=== PATIENT | female | born 1990 | race Caucasian/White ===

== ENCOUNTER 2016-04-09 13:13 | Observation (INO) | payer BC ==
[2016-04-09 14:00] LABS: Urine Bilirubin Negative (NEGATIVE); Urine Blood Negative /ul (NEGATIVE); Urine Ketone Negative (NEGATIVE); Urine Nitrite Negative (NEGATIVE); Urine Protein Negative (NEGATIVE); Urine Specific Gravity >=1.030 SP.GR. (1.005-1.010); Urine Urobilinogen Normal (NORMAL)
[2016-04-09 14:11] LABS: Urine Color Yellow
[2016-04-09 14:12] LABS: Urine Appearance Clear; Urine Bacteria 1+; Urine RBC None Seen /hpf (0-5)
[2016-04-09 14:22] LABS: Cocaine Ur Negative (NEGATIVE); Urine Barbiturate Negative (NEGATIVE); Urine Benzodiazepines Negative (NEGATIVE); Urine Opiates Negative (NEGATIVE); Urine PCP Negative (NEGATIVE); Urine THC Negative (NEGATIVE)
[2016-04-09] MEDS ORDERED: DEXTROSE 5%-LACTATED RINGERS 1,000 ML IV PRN (14:29)
[2016-04-09] MEDS ORDERED: TERBUTALINE SULFATE 1 MG/ML VIAL ONE (15:17)
[2016-04-09] MEDS ORDERED: TERBUTALINE SULFATE 1 MG/ML VIAL SC ONE (15:29)
[2016-04-09] MEDS ORDERED: RINGERS SOLUTION,LACTATED 1,000 ML IV PRN (15:29)
[2016-04-09] MEDS ORDERED: PENICILLIN G POTASSIUM 5 MILLIONUNT in DEXTROSE 5 % IN WATER 100 ML IV ONE ×2 (16:00)
[2016-04-09] MEDS ORDERED: BETAMETH ACET/BETAMET SOD PHOS 6 MG/ML VIAL IM ONE (16:00)
[2016-04-09] MEDS: PENICILLIN G POTASSIUM 2.5 MILLIONUNT in DEXTROSE 5 % IN WATER 100 ML IV SCH ×2 (19:33)
[2016-04-10] MEDS: PENICILLIN G POTASSIUM 2.5 MILLIONUNT in DEXTROSE 5 % IN WATER 100 ML IV SCH ×2
--- NOTE | 2016-04-10 05:01 | DS ---
Description of Stay: This is a 25-year-old 1 para 0 at 33 6/7 weeks visiting from out of town who presented to labor and delivery complaining of contractions. Patient states the contractions started the night previous and continued throughout the night becoming more intense and frequent which brought her in to the hospital to be evaluated. She was noted to have contractions every 3 minutes. She denied leaking of fluid, vaginal bleeding, decreased movement, recent illness or injury, or recent sexual activity. Her has been relatively uncomplicated other than having had a couple serious back surgeries in which she is scheduled for a primary section at 39 weeks in her home town in [place]. Upon admission she was given a bolus of IV fluids and 1 dose of terbutaline 0.25 mg subcutaneous which failed to stop her contractions. She refused a trial of nifedipine. Because of the frequency and intensity of her contractions she was given 1 dose of betamethasone and started on IV penicillin for GBS prophylaxis after cultures were obtained. She was admitted for overnight observation during which her contractions decreased in frequency and intensity. Her cervix remained unchanged at 1/50/-2 with reactive nonstress test and reassuring tracing throughout her stay. Patient is discharged to drive back to her home in [place] where arrangements have been made with her TRANSFER TABLE OPERATOR HELPER there to receive her second dose of betamethasone around 1600 today. Because of the long drive, she will be heparin 5000 units subcutaneous 1 prior to discharge. Procedures Performed: see notes below - nonstress test, continuous /toco monitoring, tocolytic therapy, IV hydration Discharge Disposition: Home self care Disposition: Home self-care Condition: Stable Discharge Activity: Activity as tolerated, Other - no sexual activity or strenuous activity until evaluated by her TRANSFER TABLE OPERATOR HELPER Discharge Diet: General/regular food Referrals: Juan Schaeffer ARNP [Primary Care Provider] - Complete Home Medications List: Complete Home Medication List: Guaifenesin/Pseudoephedrne HCl [Mucinex D ER Tablet] 1 each PO PRN PRN 04/09/16
--- NOTE | 2016-04-10 05:14 | HP ---
Chief Complaint - Chief Complaint Date of Service: 04/09/16 Time of Service: 13:00 Chief Complaint: painful contractions History of Present Illness: This is a 25-year-old 1 para 0 at 33 6/7 weeks visiting from out of town who presented to labor and delivery complaining of contractions. Patient states the contractions started the night previous and continued throughout the night becoming more intense and frequent which brought her in to the hospital to be evaluated. She was noted to have contractions every 3 minutes. She denied leaking of fluid, vaginal bleeding, decreased movement, recent illness or injury, or recent sexual activity. Her has been relatively uncomplicated other than having had a couple serious back surgeries in which she is scheduled for a primary section at 39 weeks in her home town in [place]. - Patient's Past Medical History Patient History - Medical: Other - back problems Patient History - Cardiac/Respiratory: Other - minor URI which she is currently on Mucinex Patient History - Cancer: No Hx of Cancer Patient History - Surgical Procedures: Cholecystectomy - 2012, Orthopedic - 2 significant back surgeries with rods and fusion in 2012 and 2014, knee surgery 2009 Patient History - Other: None - Family History Family History:: no untoward family reactions to anesthesia, no familial bleeding tendencies, no family history of clotting disorders, no family history of premature - Social History Living Situations: spouse Abuse History: No History of abuse Psych History: No pertinent hx Does anyone smoke in the home?: No - Immunizations Immunizations Up to Date: Yes Hx Pneumococcal Vaccination: No History of Influenza Vaccine: Yes Review Of Systems (GEN) - Review of Systems EENTM: Present: Nose Congestion Respiratory: Present: No Symptoms Reported Cardiac: Present: No Symptoms Reported Abdominal: Present: Other - Contractions Genitourinary: Present: No Symptoms Reported Musculoskeletal: Present: No Symptoms Reported Neurological: Present: No Symptoms Reported Skin: Present: No Symptoms Reported Endocrine: Present: No Symptoms Reported Allergies/Adverse Reactions: Allergies Allergy/AdvReac Type Severity Reaction Status Date / Time No Known Allergies Allergy Unverified 04/09/16 13:39 Home Medications: HOME MEDICATIONS Guaifenesin/Pseudoephedrne HCl [Mucinex D ER Tablet] 1 each PO PRN PRN 04/09/16 [Last Taken 04/09/16] Exam - Exam Constitutional: Present: Alert, Oriented x3, Cooperative, No distress ENT Exam: Present: hearing grossly normal Back Exam: Present: no CVA tenderness Breasts: Present: Exam deferred Respiratory: Present: lungs clear, normal breath sounds, no respiratory distress Cardiovascular/Chest: Present: normal peripheral pulses, regular rate, rhythm, no edema, no murmur Peripheral Pulses: radial (R): 2+, radial (L): 2+ Abdomen: Present: soft, nontender, nondistended, no rebound tenderness, no hepatospenomegaly, other - Gravid uterus consistent with 33-35 week gestation age /Rectal: Present: Other - Cervix 50/-2 Extremity: Present: normal range of motion, non-tender, no pedal edema, no calf tenderness Skin Exam: Present: normal color, warm/dry, no cyanosis Neurologic: Present: normal mood/affect, oriented x 3 Appearance: Present: appropriate appearance, appropriate insight, denies illness Eye contact: Present: cooperative, good eye contact, normal speech Thoughts: Present: normal thought pattern Diagnostic Studies: Abnormal Lab Results 04/09/16 Range/Units 13:40 Ur Leukocyte Esterase 75 H (NEGATIVE) /ul Urine WBC 5-10 H (0-5) /hpf Ur Epithelial Cells 5-10 H (0-5) /hpf Urine Bacteria 1+ H (NONE) Laboratory Results Urine Color Yellow 04/09/16 13:40 Urine Appearance Clear 04/09/16 13:40 Urine pH 6.0 pH (5.0-7.0) 04/09/16 13:40 Ur Specific [place] >=1.030 SP.GR. (1.005-1.010) 04/09/16 13:40 Urine Protein Negative mg/dL (NEGATIVE) 04/09/16 13:40 Urine Glucose (UA) Negative mg/dL (NEGATIVE) 04/09/16 13:40 Urine Ketones Negative mg/dL (NEGATIVE) 04/09/16 13:40 Urine Blood Negative /ul (NEGATIVE) 04/09/16 13:40 Urine Nitrate Negative (NEGATIVE) 04/09/16 13:40 Urine Bilirubin Negative mg/dl (NEGATIVE) 04/09/16 13:40 Urine Urobilinogen Normal EU/dl (NORMAL) 04/09/16 13:40 Ur Leukocyte Esterase 75 /ul (NEGATIVE) H 04/09/16 13:40 Urine RBC None seen /hpf (0-5) 04/09/16 13:40 Urine WBC 5-10 /hpf (0-5) H 04/09/16 13:40 Ur Epithelial Cells 5-10 /hpf (0-5) H 04/09/16 13:40 Urine Bacteria 1+ (NONE) H 04/09/16 13:40 Urine Opiates Screen Negative (NEGATIVE) 04/09/16 13:40 Barbiturate Screen Negative (NEGATIVE) 04/09/16 13:40 Ur Phencyclidine Scrn Negative (NEGATIVE) 04/09/16 13:40 Urine Amphetamine Negative (NEGATIVE) 04/09/16 13:40 U Benzodiazepines Scrn Negative (NEGATIVE) 04/09/16 13:40 Urine Cocaine Screen Negative (NEGATIVE) 04/09/16 13:40 Urine Marijuana (THC) Negative (NEGATIVE) 04/09/16 13:40 Assessment/Plan - Procedures Results: Nonstress test reactive. [place] with persistent contractions every 3-4 minutes - Assessment/Plan (1) Threatened labor Assessment: Admit for 23 hour observation to assure no cervical change. Because frequency and intensity of contractions and patient's gestational age we'll proceed with aggressive therapy including IV penicillin for GBS prophylaxis, tocolytics, and betamethasone. If patient is determined to be in labor she will be transferred to a tertiary care center for further management. Obtain medical records from OB physician in [place]. Problem: Ruled-out Qualifiers: Trimester: third trimester Qualified Code(s): O47.03 - False labor before 37 completed weeks of gestation, third trimester
--- NOTE | 2016-04-10 05:36 | PN ---
Subjective - Date and Time Seen Date: 04/10/16 Time: 05:28 Subjective Narrative: Patient reports having a few contractions of increased intensity around 3 this morning but has since become mild and no different than the ones she has been having since yesterday. Objective - Review of Systems Generalized/Overall Review: Reports: No Symptoms Reported EENTM: Reports: No Symptoms Reported Respiratory: Reports: No Symptoms Reported Cardiac: Reports: No Symptoms Reported Abdominal: Reports: No Symptoms Reported, Other - mild contractions Genitourinary Symptoms: Reports: No Symptoms Reported Musculoskeletal Complaints: Reports: No Symptoms Reported Neurological: Reports: No Symptoms Reported Skin: Reports: No Symptoms Reported Endocrine: Reports: No Symptoms Reported - Vitals Vitals: BP 121/68, P 68, T 36.7C, R 16, O2 94% - Abnormal Lab Findings Abnormal Lab Findings: Abnormal Lab Results 04/09/16 Range/Units 13:40 Ur Leukocyte Esterase 75 H (NEGATIVE) /ul Urine WBC 5-10 H (0-5) /hpf Ur Epithelial Cells 5-10 H (0-5) /hpf Urine Bacteria 1+ H (NONE) - Exam Exam Narrative: NST reactive. [place]- contractions q 3-4 min Constitutional: Present: Alert, Oriented x3, Cooperative, No distress Breasts: Present: Exam deferred Respiratory: Present: no respiratory distress Cardiovascular/Chest: Present: normal peripheral pulses, regular rate, rhythm, no edema Abdomen: Present: soft, nontender, nondistended, no rebound tenderness, other - Gravid consistent with 34 wk GA /Rectal: Present: Other - Cvx - 1/50/-2 Extremity: Present: normal range of motion, non-tender, normal inspection, no pedal edema, no calf tenderness Skin Exam: Present: normal color, warm/dry Neurologic: Present: normal mood/affect, oriented x 3 Appearance: Present: appropriate appearance, appropriate insight Eye contact: Present: cooperative, good eye contact, normal speech Thoughts: Present: normal thought pattern, normal mood /affect Assessment/Plan - Problems/Diagnosis (1) Threatened labor Problem: Ruled-out Qualifiers: Trimester: third trimester Qualified Code(s): O47.03 - False labor before 37 completed weeks of gestation, third trimester Narrative: Patient will be discharged this am to return to her home in [place] where arrangements have been made with her DIAL PRINTER there to receive her 2nd dose of betamethasone around 1600 today. PTL precautions.
[2016-04-10] MEDS ORDERED: HEPARIN SODIUM,PORCINE 5,000 UNITS/ML VIAL SC ONE (06:30)
[2016-04-10] MEDS ORDERED: BETAMETH ACET/BETAMET SOD PHOS 6 MG/ML VIAL IM ONE (16:00)
== END 2016-04-10 07:25 | disposition home or self-care (01) ==
LOC: OBCLINIC 13:13 → OB 17:30
PROVIDERS: ADMIT Obstetrics & Gynecology; ATTEND Obstetrics & Gynecology
DX: O60.03 Preterm labor without delivery, third trimester (principal); Z3A.34 34 weeks gestation of pregnancy
CPT/HCPCS: 59025; 80307; 81001; 87081; 96365; 96372; G0378